=== PATIENT | female | born 1985 | race Caucasian/White ===

== ENCOUNTER 2023-11-13 05:07 | Emergency (ER) | payer SELFPAY ==
[2023-11-13 06:21] LABS: Appearance,Urine Clear (Clear); Bilirubin,Urine Negative (Negative); Blood,Urine Negative (Negative); Color,Urine Colorless; Glucose,Urine (UA) Negative (Negative); Ketones,Urine Negative (Negative); Leukocyte Esterase,Urine Negative (Negative); Nitrite,Urine Negative (Negative); PH, Urine 5.5 (5.0-8.0); Protein,Urine Negative (Negative); Specific Gravity,Urine 1.022 (1.001-1.035); Urobilinogen,Urine <2.0 mg/dL (<2.0)
--- NOTE | 2023-11-13 06:37 | ED ---
Female Urogenital HPI - General Chief complaint: Urogenital Stated complaint: Abdominal Pain Time Seen by Provider: 11/13/23 06:27 Source: patient, RN notes reviewed Mode of arrival: ambulatory Limitations: no limitations - History of Present Illness Initial comments: This is a 38-year-old female who presents to the emergency department for urinary symptoms. States that about a week ago she was having burning with urination, urinary urgency, and pressure. She drank a bunch of water and took antibiotics that she had leftover. States that symptoms resolved and she seemed to improve. However yesterday she started to develop the same symptoms with burning with urination, urgency, and pressure. She proceeded to drink a large amount of water and took ibuprofen. Feels like symptoms may have improved to some extent, but are still bothersome. She does have some pain in her lower back as well. Denies any nausea or vomiting. - Related Data Previous Rx's Medication Instructions Recorded Ketorolac [Toradol] 10 mg PO Q6HR PRN #15 tab 11/13/23 Phenazopyridine [Pyridium] 200 mg PO TID PRN #9 tablet 11/13/23 Allergies Allergy/AdvReac Type Severity Reaction Status Date / Time No Known Allergies Allergy Verified 11/13/23 05:26 Review of Systems ROS Statement: Those systems with pertinent positive or pertinent negative responses have been documented in the HPI. ROS Other: All systems not noted in ROS Statement are negative. Past Medical History Past Medical History: No Reported History History of Any Multi-Drug Resistant Organisms: None Reported Past Surgical History: Section Past Psychological History: No Psychological Hx Reported Smoking Status: Never smoker Past Alcohol Use History: None Reported Past Drug Use History: None Reported General Exam Limitations: no limitations General appearance: alert, in no apparent distress Head exam: Present: atraumatic, normocephalic, normal inspection Respiratory exam: Present: normal lung sounds bilaterally. Absent: respiratory distress, wheezes, rales, rhonchi, stridor Cardiovascular Exam: Present: regular rate, normal rhythm, normal heart sounds. Absent: systolic murmur, diastolic murmur, rubs, gallop, clicks GI/Abdominal exam: Present: soft, normal bowel sounds. Absent: distended, tenderness, guarding, rebound, rigid Back exam: Absent: CVA tenderness (R), CVA tenderness (L) Neurological exam: Present: alert, oriented X3, CN II-XII intact Psychiatric exam: Present: normal affect, normal mood Skin exam: Present: warm, dry, intact, normal color. Absent: rash Course Vital Signs 11/13/23 11/13/23 05:22 08:51 Temperature 97.9 F 98.1 F Pulse Rate 75 68 Respiratory 19 18 Rate Blood Pressure 151/94 138/87 O2 Sat by Pulse 100 97 Oximetry Medical Decision Making - Medical Decision Making This is a 38 year old female who presents to the emergency department for urinary symptoms. Was pt. sent in by a medical professional or institution? @ -No Did you speak to anyone other than the patient for history? @ -No Did you review nursing and triage notes? @ -Yes, and I agree, it is accurate with regards to the patient's symptoms. Were old charts reviewed? @ -No Differential Diagnosis? @ -Differential Urinary Symptoms: UTI, pyelonephritis, STI, injury, this is not meant to be an all-inclusive list. EKG interpreted by me (3pts min.)? @ -Not obtained X-rays interpreted by me (1pt min.)? @ -Not obtained CT interpreted by me (1pt min.)? @ -Not obtained U/S interpreted by me (1pt. min.)? @ -US of the kidneys, ureters, and bladder obtained. My interpretation identifies no evidence of hydronephrosis. What testing was considered but not performed? (CT, X-rays, U/S, labs)? Why? @ -None What meds were considered but not given? Why? @ -None Did you discuss the management of the patient with other professionals? @ -No Did you reconcile home meds? @ -No Was smoking cessation discussed for >3mins.? @ -No Was critical care preformed (if so, how long)? @ -No Were there social determinants of health that impacted care today? How? (H omelessness, low income, unemployed, alcoholism, drug addiction, transportation, low edu. Level, literacy, decrease access to med. care, half-way, rehab)? @ -No Was there de-escalation of care discussed even if they declined? (Discuss DNR or withdrawal of care, Hospice)? @ -No What co-morbidities impacted this encounter? (DM, HTN, Smoking, COPD, CAD, Cancer, CVA, Hep., AIDS, mental health diagnosis, sleep apnea, morbid obesity)? @ -None Was patient admitted / discharged? @ -Discharged. Urinalysis negative for signs of infection. US of the kidneys, ureters, and bladder obtained revealing no acute process. The cause of the patient's symptoms is not currently clear. Prescription for Toradol and Pyridium provided with dosing instructions reviewed. Advised she drink plenty of fluids and follow-up with her primary care provider. Undiagnosed new problem with uncertain prognosis? @ -None Drug Therapy requiring intensive monitoring for toxicity (Heparin, Nitro, Insulin, Cardizem)? @ -None Were any procedures done? @ -None Diagnosis/symptom? @ -Urinary symptoms Acute, or Chronic, or Acute on Chronic? @ -Acute Uncomplicated (without systemic symptoms) or Complicated (systemic symptoms)? @ -Uncomplicated Side effects of treatment? @ -None Exacerbation, Progression, or Severe Exacerbation] @ -Not applicable Poses a threat to life or bodily function? @ -No Return precautions reviewed in depth, the patient is instructed to return to the emergency department with any new, worsening, or concerning symptoms. Patient verbalized understanding. This case was discussed in detail with the attending ED physician, Dr. Ahn. Presentation, findings, and treatment plan discussed in detail as well. - Lab Data Lab Results 11/13/23 11/13/23 Range/Units 05:40 05:40 Urine Color Colorless Urine Appearance Clear (Clear) Urine pH 5.5 (5.0-8.0) Ur Specific A[place]da 1.022 (1.001-1.035) Urine Protein Negative (Negative) Urine Glucose (UA) Negative (Negative) Urine Ketones Negative (Negative) Urine Blood Negative (Negative) Urine Nitrite Negative (Negative) Urine Bilirubin Negative (Negative) Urine Urobilinogen <2.0 (<2.0) mg/dL Ur Leukocyte Esterase Negative (Negative) Urine HCG, Qual Not Detected (Not Detectd) - Radiology Data Radiology results: report reviewed, image reviewed Disposition Clinical Impression: Urinary symptom or sign Disposition: HOME SELF-CARE Additional Instructions: Return to the emergency department with any new, worsening, or concerning symptoms. Take the Toradol with Tylenol as needed for pain relief. If you choose to take the Toradol, do not take any other anti-inflammatories such as ibuprofen, take one or the other. You can take the Pyridium up to 3 times daily as needed for burning with urination. You can also look into pelvic floor physical therapy to retrain your pelvic floor muscles. Follow up with your primary care provider in 1-2 days. Prescriptions: Phenazopyridine [Pyridium] 200 mg PO TID PRN #9 tablet PRN Reason: Pain Ketorolac [Toradol] 10 mg PO Q6HR PRN #15 tab PRN Reason: Pain Is patient prescribed a controlled substance at d/c from ED?: No Referrals: None,Stated [Primary Care Provider] - 1-2 days Forms: Area PCPs Time of Disposition: 08:05
[2023-11-13] MEDS: PHENAZOPYRIDINE 200 MG TAB PO STA (06:52)
[2023-11-13] MEDS: KETOROLAC 15 MG/ML 1 ML VIAL IM STA (07:41)
--- NOTE | 2023-11-13 07:57 | US ---
EXAMINATION TYPE: US kidneys/renal and bladder DATE OF EXAM: 11/13/2023 COMPARISON: NONE CLINICAL INDICATION: Female, 38 years old with history of Dysuria, urinary urgency, lower back pain; EXAM MEASUREMENTS: Right Kidney: 12.0 x 5.0 x 6.3 cm Left Kidney: 13.3 x 6.1 x 6.1 cm Right Kidney: No hydronephrosis or masses seen Left Kidney: No hydronephrosis or masses seen Bladder: Anechoic Bilateral Jets seen: No IMPRESSION: No hydronephrosis. No specific abnormality seen.
[2023-11-13] MEDS: ACET/COD 300 MG/30 MG STARTER PACK 6 TAB BTL PO STA (08:48)
[2023-11-13] MEDS: ONDANSETRON 4 MG ODT STARTER PACK 2 TAB BTL PO STA (08:48)
[2023-11-13 08:52] VITALS: BP 138/87; PULSE 68; RESP 18; TEMP 98.1
== END 2023-11-13 08:53 | disposition home or self-care (01) ==
LOC: EC 05:07
DX: R39.9 Unspecified symptoms and signs involving the genitourinary system (principal)
CPT/HCPCS: 81003; 81025; 76770; 99284; S0119